=== PATIENT | male | born 1955 | race Caucasian/White ===

== ENCOUNTER 2018-05-18 07:45 | Outpatient (CLI) | payer OTHER | END 2018-05-18 07:47 | disposition home or self-care (01) | LOC: RAD 07:45 | DX: M75.51 Bursitis of right shoulder (principal); M75.52 Bursitis of left shoulder; M75.31 Calcific tendinitis of right shoulder; M75.32 Calcific tendinitis of left shoulder ==

== ENCOUNTER 2018-12-28 09:37 | Outpatient (CLI) | payer OTHER | END 2018-12-28 09:45 | disposition home or self-care (01) | LOC: RAD 09:37 | DX: R00.2 Palpitations (principal); J45.909 Unspecified asthma, uncomplicated ==

== ENCOUNTER 2019-05-28 07:44 | Outpatient (CLI) | payer OTHER | END 2019-05-28 07:56 | disposition home or self-care (01) | LOC: LAB 07:44 | DX: N39.0 Urinary tract infection, site not specified (principal); E78.00 Pure hypercholesterolemia, unspecified; D53.8 Other specified nutritional anemias; I11.0 Hypertensive heart disease with heart failure; E11.65 Type 2 diabetes mellitus with hyperglycemia; N40.0 Benign prostatic hyperplasia without lower urinary tract symptoms ==

== ENCOUNTER 2021-03-10 08:07 | Outpatient (CLI) | payer OTHER | END 2021-03-10 08:12 | disposition home or self-care (01) | LOC: TOM 08:07 | PROVIDERS: ATTEND Internal Medicine Endocrinology, Diabetes & Metabolism | DX: K76.0 Fatty (change of) liver, not elsewhere classified (principal); J70.5 Respiratory conditions due to smoke inhalation; C18.8 Malignant neoplasm of overlapping sites of colon ==

== ENCOUNTER 2021-04-06 01:43 | Emergency (ER) | payer OTHER ==
[~2021-04-06] VITALS: Ht 167.6 cm; Wt 49.9 kg
[2021-04-06] MEDS ORDERED: FORTAMET500 MG (01:53)
[2021-04-06] MEDS ORDERED: SIMVASTATIN10 MG (01:54)
[2021-04-06] MEDS ORDERED: ZETIA10 MG (01:54)
[2021-04-06] MEDS ORDERED: TOPROL XL50 M1 (01:54)
[2021-04-06] MEDS ORDERED: CHILDREN'S ASPI81 MG (01:55)
[2021-04-06] MEDS ORDERED: HORIZANT300 MG (01:55)
[2021-04-06] MEDS ORDERED: VITAMIN E400 UNI6 (01:55)
[2021-04-06] MEDS ORDERED: LANTUS SOL100 UNIT/1 (01:56)
[2021-04-06] MEDS ORDERED: HUMALOG100 UNIT/2 (01:56)
[2021-04-06] MEDS ORDERED: KETO10TA2 PO ×2 (03:41→03:42)
== END 2021-04-06 03:57 ==
LOC: ER 01:43
DX: K40.90 Unilateral inguinal hernia, without obstruction or gangrene, not specified as recurrent (principal)

== ENCOUNTER 2021-08-18 01:13 | Emergency (ER) | payer OTHER ==
[~2021-08-18] VITALS: Ht 167.6 cm; Wt 49.9 kg
[~2021-08-18 01:13] MED LIST: CHILDREN'S ASPI81 MG; FORTAMET500 MG; HORIZANT300 MG; HUMALOG100 UNIT/2; KETO10TA2 PO; LANTUS SOL100 UNIT/1; SIMVASTATIN10 MG; TOPROL XL50 M1; VITAMIN E400 UNI6; ZETIA10 MG
== END 2021-08-18 05:14 | disposition home or self-care (01) ==
LOC: ER 01:13
DX: R10.9 Unspecified abdominal pain (principal); K59.00 Constipation, unspecified

== ENCOUNTER 2021-12-25 05:57 | Emergency (ER) | payer OTHER ==
[~2021-12-25] VITALS: Ht 167.6 cm; Wt 47.6 kg
[2021-12-25] MEDS ORDERED: REDNESS RELIEF15 ML OP (07:16)
[2021-12-25] MEDS ORDERED: GENTAK5 ML OP (07:16)
== END 2021-12-25 07:32 ==
LOC: ER 05:57
DX: H11.31 Conjunctival hemorrhage, right eye (principal); I10 Essential (primary) hypertension; E11.9 Type 2 diabetes mellitus without complications; Z79.4 Long term (current) use of insulin

== ENCOUNTER 2022-08-24 20:47 | Emergency (ER) | payer OTHER ==
[~2022-08-24] VITALS: Ht 167.6 cm; Wt 40.8 kg
[~2022-08-24 20:47] MED LIST changes: +GENTAK5 ML OP; +REDNESS RELIEF15 ML OP
[2022-08-25] MEDS ORDERED: LANTUS SOL100 UNIT/1 SUBCUTANEO (06:35)
[2022-08-25] MEDS ORDERED: METFORMIN HCL500 M3 PO (06:35)
== END 2022-08-25 06:40 ==
LOC: ER 20:47
DX: E11.65 Type 2 diabetes mellitus with hyperglycemia (principal); Z79.4 Long term (current) use of insulin

== ENCOUNTER 2022-12-18 08:22 | Inpatient (IN) | payer OTHER ==
[~2022-12-18] VITALS: Ht 167.6 cm; Wt 499.0 kg
[~2022-12-18 08:22] MED LIST changes: +LANTUS SOL100 UNIT/1 SUBCUTANEO; +METFORMIN HCL500 M3 PO
[2022-12-18] MEDS ORDERED: RAMIPRIL10 MG (08:31)
[2022-12-18] MEDS ORDERED: GLIPIZIDE ER10 MG PO (08:31)
[2022-12-18] MEDS ORDERED: SIMVASTATIN5 MG (08:31)
== END 2022-12-23 14:05 | disposition home or self-care (01) | DRG 682 ==
LOC: ER 08:22 → ICU-2 20:42 → MEDI 12-21 17:07 → SEC-K 12-21 19:49 → MEDI 12-22 06:00
PROVIDERS: ADMIT Internal Medicine; ATTEND Internal Medicine
PROC: BW21YZZ Computerized Tomography (CT Scan) of Abdomen and Pelvis using Other Contrast (ICD-10-PCS; 2022-12-18)
PROC: BW40ZZZ Ultrasonography of Abdomen (ICD-10-PCS; 2022-12-19)
PROC: 02HV33Z Insertion of Infusion Device into Superior Vena Cava, Percutaneous Approach (ICD-10-PCS; principal; 2022-12-20)
PROC: 3E0436Z Introduction of Nutritional Substance into Central Vein, Percutaneous Approach (ICD-10-PCS; 2022-12-20)
DX: N17.9 Acute kidney failure, unspecified (principal); R65.21 Severe sepsis with septic shock; E87.1 Hypo-osmolality and hyponatremia; E87.20 Acidosis, unspecified; E87.3 Alkalosis; M62.82 Rhabdomyolysis; E86.0 Dehydration; E11.9 Type 2 diabetes mellitus without complications; Z79.4 Long term (current) use of insulin; R09.02 Hypoxemia; K52.89 Other specified noninfective gastroenteritis and colitis; K70.10 Alcoholic hepatitis without ascites; D69.6 Thrombocytopenia, unspecified; D64.9 Anemia, unspecified

== ENCOUNTER 2024-04-26 11:35 | Inpatient (IN) | payer OTHER ==
[~2024-04-26] VITALS: Ht 167.6 cm; Wt 52.2 kg
[~2024-04-26 11:35] MED LIST changes: +GLIPIZIDE ER10 MG PO; +RAMIPRIL10 MG; +SIMVASTATIN5 MG
[2024-04-26] MEDS ORDERED: ATORVASTATIN CA10 MG PO (11:55)
[2024-04-26] MEDS ORDERED: ZESTRIL5 MG PO (11:55)
[2024-04-26] MEDS ORDERED: BRILINTA60 MG PO (11:55)
[2024-04-26] MEDS ORDERED: 0.9 % SODIUM CHLORIDE 1,000 ML IV STA (12:05)
[2024-04-26 13:26] LABS: MEAN CELL VOLUME 87.3 fL (80.0-100.00); MEAN CORPUSCULAR HEMOGLOBIN 28.9 pg (27.00-32.0); MEAN CORPUSCULAR HGB CONC 33.1 g/dl (32.0-36.0); PLATELET COUNT 288 K/uL (150-450); RED BLOOD COUNT 2.97 M/uL (4.00-6.00); RED CELL DISTRIBUTION WIDTH 15.1 % (11.5-14.5)
[2024-04-26 13:28] LABS: CALCIUM 9.2 mg/dL (8.5-10.1); CREATININE SERUM 2.11 mg/dL (0.70-1.30); GFR 31.39; POTASSIUM 4.35 mEq/L (3.5-5.1)
[2024-04-26 13:30] LABS: HEMOGLOBIN 8.6 g/dL (13-16.00)
[2024-04-26] MEDS ORDERED: CHLORDIAZEPOXIDE HCL 25 MG CAPSULE PO SCH (14:03)
[2024-04-26] MEDS ORDERED: THIAMINE HCL 100 MG/ML 2 ML VIAL IV SCH (14:03)
[2024-04-26] MEDS ORDERED: AMLODIPINE BESYLATE 2.5 MG TABLET PO SCH (14:06)
[2024-04-26] MEDS ORDERED: IRON FUM,PS/FOLIC/BCOMP,C NO.9 1 CAP CAPSULE PO SCH (14:13)
[2024-04-26] MEDS ORDERED: INSULIN LISPRO 1,000 UNIT/10 ML UNITS SUBCUTANEO PRN (14:15)
[2024-04-26] MEDS ORDERED: RINGERS SOLUTION,LACTATED 1,000 ML IV SCH (14:15)
[2024-04-26] MEDS ORDERED: DEXTROSE 50 % IN WATER 0.5 G/ML DISP.SYRIN IV PRN (14:15)
[2024-04-26] MEDS ORDERED: NICOTINE 21MG/24HR PATCH.TD24 TD SCH ×2 (14:15→17:00)
[2024-04-26 14:58] LABS: PH,URINE 5.5 (5.0-8.0); URINE APPEARANCE Clear; URINE BILIRRUBIN Negative (NEGATIVE); URINE BLOOD Trace; URINE COLOR Yellow; URINE KETONE Negative (NEGATIVE); URINE LEUKOCYTE Negative; URINE NITRATE Negative; URINE PROTEIN Trace (NEGATIVE); URINE UROBILINOGEN 0.2 E.U./dl
[2024-04-26 14:59] LABS: URINE BACTERIA 6.2 uL (0.0-1933); URINE EPITHELIAL CELLS 1.5 uL (0.0-38.8)
[2024-04-26 15:47] VITALS: BP 130/75
[2024-04-26 15:50] LABS: URINE CAST 0.15 uL (0.0-1.40); URINE GLUCOSE 500 MG/DL (NEGATIVE); URINE RBC 0.1 uL (0.0-20.8); URINE WBC 1.2 uL (0.0-23.2)
[2024-04-26 16:09] LABS: FERRITIN 60.5 NG/ML (26-388)
[2024-04-26 16:11] LABS: T4 FREE 1.14 NG/ML (0.76-1.46); TSH 0.479 uIU/mL (0.358-3.74)
[2024-04-26] MEDS ORDERED: FAMOTIDINE/PF 20 MG/2 ML VIAL IV SCH (21:00)
[2024-04-27 01:48] VITALS: BP 112/68; O2SAT 99
[2024-04-27] MEDS ORDERED: LEVOTHYROXINE SODIUM 50 MCG TABLET PO SCH (06:00)
[2024-04-27 06:33] LABS: MEAN CELL VOLUME 88.6 fL (80.0-100.00); MEAN CORPUSCULAR HGB CONC 33.2 g/dl (32.0-36.0); PLATELET COUNT 247 K/uL (150-450); RED BLOOD COUNT 2.52 M/uL (4.00-6.00); RED CELL DISTRIBUTION WIDTH 14.8 % (11.5-14.5)
[2024-04-27 06:46] LABS: BILIRUBIN TOTAL 0.26 mg/dL (0.3-1.2); CALCIUM 8.4 mg/dL (8.5-10.1); CREATININE SERUM 1.75 mg/dL (0.70-1.30); GFR 38.95; GLOBULINA 2.2 G/DL (2.4-3.5); MAGNESIUM 1.8 mg/dL (1.8-2.4); PHOSPHOROUS 2.7 mg/dL (2.5-4.9); POTASSIUM 4.33 mEq/L (3.5-5.1); TOTAL PROTEIN 5.2 gm/dL (6.4-8.2)
[2024-04-27 07:01] LABS: HEMATOCRIT 22.3 % (39.0-48.0); MEAN CORPUSCULAR HEMOGLOBIN 29.3 pg (27.00-32.0)
[2024-04-27 07:02] LABS: HEMOGLOBIN 7.4 g/dL (13-16.00)
[2024-04-27] MEDS ORDERED: FOLIC ACID 1 MG TABLET PO SCH (09:00)
[2024-04-27] MEDS ORDERED: MULTIVIT-MIN/IRON FUM/FOLIC AC 1 TAB TABLET PO SCH (09:00)
[2024-04-27] MEDS ORDERED: CYANOCOBALAMIN (VITAMIN B-12) 1,000 MCG TABLET PO SCH (09:00)
[2024-04-27] MEDS ORDERED: FAMOTIDINE/PF 20 MG/2 ML VIAL IV SCH (09:00)
[2024-04-27 09:18] LABS: FOLIC ACID > 20.00 ng/ml (4.78-20)
[2024-04-27 09:43] VITALS: BP 133/70
[2024-04-27] MEDS ORDERED: FUROsemide 20 MG/2 ML VIAL IV SCH ×2 (11:45→17:30)
[2024-04-27 16:21] VITALS: BP 117/69
[2024-04-27] MEDS ORDERED: CHLORDIAZEPOXIDE HCL 25 MG CAPSULE PO SCH (17:00)
[2024-04-28 01:47] VITALS: BP 120/70; O2SAT 99
[2024-04-28] MEDS ORDERED: AMLODIPINE BESYLATE 5 MG TABLET PO SCH (09:00)
[2024-04-28 09:08] VITALS: BP 133/66; O2SAT 97
[2024-04-28 16:00] VITALS: BP 156/78; O2SAT 98
[2024-04-28 19:19] LABS: HEMATOCRIT 32.5 % (39.0-48.0); MEAN CELL VOLUME 86.6 fL (80.0-100.00); MEAN CORPUSCULAR HEMOGLOBIN 29.3 pg (27.00-32.0); MEAN CORPUSCULAR HGB CONC 33.9 g/dl (32.0-36.0); PLATELET COUNT 234 K/uL (150-450); RED BLOOD COUNT 3.75 M/uL (4.00-6.00); RED CELL DISTRIBUTION WIDTH 15.9 % (11.5-14.5)
[2024-04-29 01:54] VITALS: BP 133/70; O2SAT 98
[2024-04-29 09:16] LABS: HEMATOCRIT 33.7 % (39.0-48.0); HEMOGLOBIN 11.5 g/dL (13-16.00); MEAN CELL VOLUME 87.5 fL (80.0-100.00); MEAN CORPUSCULAR HEMOGLOBIN 29.7 pg (27.00-32.0); PLATELET COUNT 239 K/uL (150-450); RED BLOOD COUNT 3.85 M/uL (4.00-6.00)
[2024-04-29 09:54] LABS: ALBUMIN 2.9 gm/dL (3.4-5.0); BILIRUBIN TOTAL 0.56 mg/dL (0.3-1.2); CALCIUM 9.1 mg/dL (8.5-10.1); CREATININE SERUM 1.83 mg/dL (0.70-1.30); GLOBULINA 2.4 G/DL (2.4-3.5); MAGNESIUM 1.7 mg/dL (1.8-2.4); POTASSIUM 4.89 mEq/L (3.5-5.1); TOTAL PROTEIN 5.3 gm/dL (6.4-8.2)
[2024-04-29 11:09] VITALS: BP 115/69; O2SAT 98
[2024-04-29] MEDS ORDERED: MAGNESIUM SULFATE IN WATER 50 ML IV NR (15:15)
[2024-04-29 17:33] VITALS: BP 153/77
[2024-04-30 01:41] VITALS: BP 132/75; O2SAT 100
[2024-04-30 06:20] LABS: HEMATOCRIT 33.5 % (39.0-48.0); HEMOGLOBIN 11.3 g/dL (13-16.00); MEAN CELL VOLUME 87.8 fL (80.0-100.00); MEAN CORPUSCULAR HEMOGLOBIN 29.5 pg (27.00-32.0); MEAN CORPUSCULAR HGB CONC 33.6 g/dl (32.0-36.0); PLATELET COUNT 251 K/uL (150-450); RED BLOOD COUNT 3.82 M/uL (4.00-6.00); RED CELL DISTRIBUTION WIDTH 16.1 % (11.5-14.5)
[2024-04-30 07:34] LABS: CREATININE SERUM 1.82 mg/dL (0.70-1.30); GFR 37.23; MAGNESIUM 1.9 mg/dL (1.8-2.4); POTASSIUM 4.81 mEq/L (3.5-5.1)
[2024-04-30 08:37] VITALS: BP 150/83
[2024-04-30] MEDS ORDERED: FOLIC ACID1 MG PO (14:35)
[2024-04-30] MEDS ORDERED: MULTIVITAMIN-M1 EACH PO (14:35)
[2024-04-30] MEDS ORDERED: INTEGRA PLUS C1 EACH PO ×2 (14:35→14:41)
[2024-04-30] MEDS ORDERED: LEVOTHYROXINE50 MCG PO (14:35)
[2024-04-30] MEDS ORDERED: AMLODIPINE BESYL5 MG PO (14:35)
[2024-04-30] MEDS ORDERED: VITAMIN B-121000 MCG PO (14:36)
[2024-04-30] MEDS ORDERED: NORVASC5 MG PO (14:41)
[2024-04-30] MEDS ORDERED: LEVO-T50 MCG PO (14:41)
[2024-04-30] MEDS ORDERED: PANTOPRAZOLE SO40 MG PO (14:42)
[2024-04-30] MEDS ORDERED: AMLODIPINE BESYLATE 5 MG TABLET PO SCH (17:00)
== END 2024-04-30 17:25 | disposition home or self-care (01) | DRG 683 ==
LOC: ER 11:35 → MEDJ 14:31
PROVIDERS: Emergency Medicine; Internal Medicine; ADMIT Internal Medicine; ATTEND Internal Medicine
PROC: BW28ZZZ Computerized Tomography (CT Scan) of Head (ICD-10-PCS; principal; 2024-04-26)
PROC: BT4JZZZ Ultrasonography of Kidneys and Bladder (ICD-10-PCS; 2024-04-26)
PROC: 30233N1 Transfusion of Nonautologous Red Blood Cells into Peripheral Vein, Percutaneous Approach (ICD-10-PCS; 2024-04-28)
DX: N17.9 Acute kidney failure, unspecified (principal); F10.139 Alcohol abuse with withdrawal, unspecified; N18.9 Chronic kidney disease, unspecified; D64.9 Anemia, unspecified; E78.5 Hyperlipidemia, unspecified; I12.9 Hypertensive chronic kidney disease with stage 1 through stage 4 chronic kidney disease, or unspecified chronic kidney disease; E11.22 Type 2 diabetes mellitus with diabetic chronic kidney disease; Z79.4 Long term (current) use of insulin; F14.10 Cocaine abuse, uncomplicated; W19.XXXA Unspecified fall, initial encounter; Y93.9 Activity, unspecified; Y92.9 Unspecified place or not applicable

== ENCOUNTER 2024-06-22 19:29 | Emergency (ER) | payer OTHER ==
[~2024-06-22] VITALS: Ht 167.6 cm; Wt 54.4 kg
[~2024-06-22 19:29] MED LIST changes: +AMLODIPINE BESYL5 MG PO; +ATORVASTATIN CA10 MG PO; +BRILINTA60 MG PO; +FOLIC ACID1 MG PO; +INTEGRA PLUS C1 EACH PO; +LEVO-T50 MCG PO; +LEVOTHYROXINE50 MCG PO; +MULTIVITAMIN-M1 EACH PO; +NORVASC5 MG PO; +PANTOPRAZOLE SO40 MG PO; +VITAMIN B-121000 MCG PO; +ZESTRIL5 MG PO
[2024-06-22] MEDS ORDERED: ADULT ASPIRIN81 MG PO (19:58)
[2024-06-22] MEDS ORDERED: DEXAMETHASONE SODIUM PHOSPHATE 4 MG/ML VIAL IM ONE (22:15)
[2024-06-22] MEDS ORDERED: KETOROLAC TROMETHAMINE 60 MG VIAL IM ONE (22:15)
== END 2024-06-22 22:48 | disposition home or self-care (01) ==
LOC: ER 19:31
DX: M75.51 Bursitis of right shoulder (principal); M75.52 Bursitis of left shoulder; I10 Essential (primary) hypertension; E11.9 Type 2 diabetes mellitus without complications; Z79.84 Long term (current) use of oral hypoglycemic drugs
CPT/HCPCS: 96372; 99282; J1100; J1885